=== PATIENT | male | born 1960 | race African-American/Black ===

== ENCOUNTER 2019-07-16 07:54 | Day surgery (SDC) | payer MEDICAID ==
[~2019-07-16] VITALS: Ht 175.3 cm; Wt 97.5 kg
[2019-07-16 09:09] LABS: CLARITY URINE CLEAR (CLEAR); COLOR URINE YELLOW (YELLOW); KETONES URINE TRACE (NEGATIVE); LEUKOCYTE ESTERASE URINE TRACE (NEGATIVE); NITRITE URINE NEGATIVE (NEGATIVE); OCCULT BLOOD URINE NEGATIVE (NEGATIVE); PROTEIN URINE NEGATIVE (NEGATIVE); SPECIFIC GRAVITY URINE 1.025 (1.005-1.030)
[2019-07-16 09:14] LABS: CHLORIDE 109 mEq/L (98-107); PARTIAL THROMBOPLASTIN TIME 27.3 sec (23.4-31.0); PROTHROMBIN TIME 10.5 sec (9.6-11.0)
[2019-07-16] MEDS ORDERED: LACTATED RINGERS 1,000 ML IV SCH (09:25)
[2019-07-16] MEDS ORDERED: SKIN ADHESIVE 0.7 GM EA TOP ONE (09:48)
[2019-07-16] MEDS ORDERED: BACITRACIN 15GM TUBE TOP ONE (09:49)
[2019-07-16] MEDS ORDERED: BUPIVACAINE HCL/PF 0.25% (2.5MG/ML) 10ML ONE (09:49)
[2019-07-16] MEDS ORDERED: MIDAZOLAM HCL 2 MG/2 ML VIAL ONE (10:04)
[2019-07-16] MEDS ORDERED: FENTANYL CITRATE/PF 50MCG/ML 2ML VIAL ONE ×2 (10:04→12:25)
[2019-07-16] MEDS ORDERED: PROPOFOL 200MG/20ML VIAL IV ONE (10:05)
[2019-07-16] MEDS ORDERED: LIDOCAINE HCL/PF 1% 10 MG/ML 5ML VIAL ONE ×2 (10:05→10:22)
[2019-07-16] MEDS ORDERED: SODIUM CHLORIDE 0.9% 10ML VIAL ONE (10:05)
[2019-07-16] MEDS ORDERED: CEFAZOLIN SODIUM 1000MG/VIAL ONE (10:05)
[2019-07-16 10:19] LABS: BASOPHILS % 0.7 % (0.0-2.0); EOSINOPHILS % 1.6 % (0.0-5.0); HEMATOCRIT. 41.7 % (42.0-52.0); LYMPHOCYTES % 37.4 % (20.0-50.0); MEAN CORPUSCULAR HEMOGLOBIN 32.8 pg (28.0-32.0); MEAN CORPUSCULAR VOLUME 91.1 fL (80.0-94.0); MEAN PLATELET VOLUME 8.4 fl (7.4-10.4); MONOCYTES % 12.8 % (2.0-8.0); NEUTROPHILS % 47.5 % (40.0-76.0); PLATELET 248 x1000/uL (130-400); RED BLOOD CELL COUNT 4.58 mill/uL (4.7-6.1); RED CELL DISTRIBUTION WIDTH 14.2 % (11.6-14.6)
[2019-07-16] MEDS ORDERED: METOCLOPRAMIDE HCL 10MG/2ML VIAL ONE (10:28)
[2019-07-16] MEDS ORDERED: ONDANSETRON HCL 4MG/2ML INJ ONE (10:28)
[2019-07-16] MEDS ORDERED: DEXAMETHASONE 4MG/ML 1ML VIAL ONE (10:28)
[2019-07-16] MEDS ORDERED: EPHEDRINE SULFATE 50MG/ML VIAL ONE (10:33)
[2019-07-16] MEDS ORDERED: BACITRACIN 50,000 UNITS/VIAL ONE (11:21)
[2019-07-16] MEDS ORDERED: NORMAL SALINE 0.9% 10 ML SYR ONE (11:21)
[2019-07-16] MEDS ORDERED: KETOROLAC 30MG/ML VIAL IV NR (13:30)
[2019-07-16] MEDS ORDERED: HYDROCODONE/ACETAMINOPHEN 10/325MG TABLET PO PRN (13:30)
[2019-07-16] MEDS ORDERED: HYDROMORPHONE HCL/PF 2MG/ML CPJ IV PRN (14:00)
[2019-07-16] MEDS ORDERED: ONDANSETRON HCL 4MG/2ML INJ IV PRN (14:00)
== END 2019-07-16 18:00 | disposition home or self-care (01) ==
LOC: OR 07:54
PROVIDERS: ATTEND Orthopaedic Surgery
DX: S62.637A Displaced fracture of distal phalanx of left little finger, initial encounter for closed fracture (principal); S63.257A Unspecified dislocation of left little finger, initial encounter; M20.012 Mallet finger of left finger(s); X58.XXXA Exposure to other specified factors, initial encounter; Y93.89 Activity, other specified; Y92.89 Other specified places as the place of occurrence of the external cause; Y99.8 Other external cause status
CPT/HCPCS: 26433; 26765; 26785; 36415; 73140; 76000; 80048; 81003; 85025; 85610; 85730; 93005; C1713; J0690; J1100; J2250; J2405; J2704; J2765; J3010; J3490; A4565